=== PATIENT | male | born 1945 | race Caucasian/White ===

== ENCOUNTER 2016-04-01 17:23 | Emergency (ER) | payer MEDICARE, OTHER ==
[~2016-04-01] VITALS: Ht 177.8 cm; Wt 84.1 kg
[~2016-04-01 17:23] MED LIST: ASPI325T6 PO; FLOMAX 0.40.4 MG/CAP PO; NORCO 325 MG-51 TAB; NORCO 325 MG-51 TAB PO; PRESERVISION1 SGL PO; PRILOSEC 20MG20 MG PO; TOPROL XL 50MG50 MG PO
[2016-04-01 18:59] LABS: BASO % 0.4 % (0.0-2.0); EOS % 0.4 % (0-4.0); GRAN # 3.6 (1.4-6.5); GRAN % 68.5 % (42.2-75.2); HEMOGLOBIN 13.3 g/dl (13.5-18.0); LYMPH # 1.2 (1.2-3.4); LYMPH % 23.5 % (20.0-51.0); MEAN CELL VOLUME 106 fl (80.0-100.0); MEAN CORPUSCULAR HEMOGLOBIN 39 pg (27.0-31.0); MEAN CORPUSCULAR HGB CONC 37 g/dl (33.0-37.0); MEAN PLATELET VOLUME 9.7 fl (7.4-10.4); MONO # 0.4 (0.1-0.6); MONO % 6.8 % (1.7-9.3); PLATELET COUNT 108 K/mm3 (130-400); REDCELL DISTRIBUTION WIDTH-CV 14.5 % (11.5-14.5); WHITE BLOOD COUNT 5.3 K/mm3 (4.8-10.8)
[2016-04-01 19:10] LABS: HEMATOCRIT 35.9 % (42.0-52.0)
[2016-04-01 19:18] LABS: ADJUSTED CALCIUM 9.5 mg/dL (8.4-10.2); ALBUMIN 3.4 gm/dL (3.5-5.0); CREATININE, serum 0.61 mg/dL (0.66-1.25); POTASSIUM 3.3 mmol/L (3.4-5.0); TOTAL PROTEIN 6.7 gm/dL (6.4-8.2)
[2016-04-01 19:22] LABS: SYNOVIAL FL. MONONUCLEAR 45.4 % (0-75); SYNOVIAL FL. POLYMORPHONUCLEAR 54.6 % (0-25)
[2016-04-01 19:28] LABS: SYNOVIAL FLUID APPEARANCE BLOODY; SYNOVIAL FLUID COLOR RED
[2016-04-01 19:37] LABS: PH 6 (5-8); SQUAMOUS EPITHELIAL None Seen /hpf; URINE APPEARANCE Clear; URINE BACTERIA None Seen /hpf; URINE BILIRUBIN Negative (NEGATIVE); URINE BLOOD 1+ (NEGATIVE); URINE COLOR Yellow; URINE GLUCOSE Negative (NEGATIVE); URINE KETONE 1+ (NEGATIVE); URINE RBC 0-2 /hpf; URINE UROBILINOGEN >=4.0 mg/dL (NEGATIVE); URINE WBC 0-2 /hpf
[2016-04-01 19:53] LABS: SYNOVIAL FLUID WBC 17400 /mm3 (200-600)
[2016-04-01 20:30] VITALS: BP 147/83; PULSE 97; TEMP 98.8
[2016-04-03 10:43] LABS: CRYSTAL NUMBER SEEN Few (()); CRYSTAL TYPE CA Pyrophosphat (()); SYN APPEARANCE Bloody (()); SYN COLOR Red (())
== END 2016-04-01 20:30 | disposition home or self-care (01) ==
LOC: COL.ER 17:23
PROVIDERS: Family Medicine
DX: M25.462 Effusion, left knee (principal); S80.02XA Contusion of left knee, initial encounter; W01.198A Fall on same level from slipping, tripping and stumbling with subsequent striking against other object, initial encounter; Y92.009 Unspecified place in unspecified non-institutional (private) residence as the place of occurrence of the external cause; M17.12 Unilateral primary osteoarthritis, left knee; I10 Essential (primary) hypertension; E87.1 Hypo-osmolality and hyponatremia

== ENCOUNTER → 2016-04-15 | Outpatient (REF) | LOC: ZLAB.WCH 11:16 | DX: Z01.89 Encounter for other specified special examinations (principal) ==

== ENCOUNTER 2016-12-30 16:05 | Emergency (ER) | payer MEDICARE, OTHER ==
[~2016-12-30] VITALS: Ht 175.3 cm; Wt 81.8 kg
[2016-12-30 16:08] VITALS: TEMP 96.5
[2016-12-30 17:00] LABS: ADJUSTED CALCIUM 7.8 mg/dL (8.4-10.2); ALBUMIN 2.6 gm/dL (3.5-5.0); BILIRUBIN,TOTAL 1.5 mg/dL (0.0-1.0); CALCIUM 6.7 mg/dL (8.4-10.2); CREATININE, serum 0.61 mg/dL (0.66-1.25); POTASSIUM 3.3 mmol/L (3.4-5.0); TOTAL PROTEIN 5.4 gm/dL (6.4-8.2)
[2016-12-30 17:02] LABS: BASO % 0.2 % (0.0-2.0); GRAN # 9.6 (1.4-6.5); HEMOGLOBIN 12.7 g/dl (13.5-18.0); LYMPH # 1.5 (1.2-3.4); LYMPH % 12.4 % (20.0-51.0); MEAN CELL VOLUME 110 fl (80.0-100.0); MEAN CORPUSCULAR HEMOGLOBIN 41 pg (27.0-31.0); MEAN CORPUSCULAR HGB CONC 37 g/dl (33.0-37.0); MEAN PLATELET VOLUME 9.3 fl (7.4-10.4); MONO # 0.7 (0.1-0.6); PLATELET COUNT 244 K/mm3 (130-400); RED BLOOD COUNT 3.11 M/mm3 (4.20-5.60); WHITE BLOOD COUNT 11.8 K/mm3 (4.8-10.8)
[2016-12-30 17:10] LABS: HEMATOCRIT 34.2 % (42.0-52.0); PROTHROMBIN TIME 11.3 SECONDS (9.7-12.8)
[2016-12-30 17:11] LABS: TROPONIN-I 0.013 ng/mL (0.000-0.034)
[2016-12-30 17:13] LABS: PARTIAL THROMBOPLASTIN TIME 28.5 SECONDS (26.0-37.0)
[2016-12-30 20:47] VITALS: BP 103/75; PULSE 90
== END 2016-12-30 20:49 | disposition short-term general hospital (02) ==
LOC: COL.ER 16:05
PROVIDERS: Family Medicine
DX: I49.9 Cardiac arrhythmia, unspecified (principal); R55 Syncope and collapse; J44.9 Chronic obstructive pulmonary disease, unspecified; F17.210 Nicotine dependence, cigarettes, uncomplicated; Z79.82 Long term (current) use of aspirin
CPT/HCPCS: Q9967

== ENCOUNTER → 2017-02-06 | Outpatient (REF) ==
[2017-02-06 06:35] LABS: COLLECTION METHOD CATHETER
[2017-02-06 07:18] LABS: PH 6 (5-8); SQUAMOUS EPITHELIAL None Seen /hpf; URINE APPEARANCE Clear; URINE BACTERIA None Seen /hpf; URINE BILIRUBIN Negative (NEGATIVE); URINE BLOOD Negative (NEGATIVE); URINE COLOR Yellow; URINE GLUCOSE Negative (NEGATIVE); URINE KETONE Negative (NEGATIVE); URINE LEUKOCYTE ESTERASE 1+ (NEGATIVE); URINE PROTEIN(semi-quant) Negative (NEGATIVE); URINE UROBILINOGEN >=4.0 mg/dL (NEGATIVE)
== END ==
LOC: ZCOL.LAB 06:32
PROVIDERS: Internal Medicine
DX: Z01.89 Encounter for other specified special examinations (principal)

== ENCOUNTER → 2017-03-11 | Outpatient (REF) ==
[2017-03-11 16:12] LABS: INFLUENZA A NEGATIVE; INFLUENZA B NEGATIVE
== END ==
LOC: ZCOL.LAB 15:49
PROVIDERS: Internal Medicine
DX: Z01.89 Encounter for other specified special examinations (principal)

== ENCOUNTER → 2017-03-12 | Outpatient (REF) | LOC: ZCOL.LAB 12:16 | DX: Z01.89 Encounter for other specified special examinations (principal) ==

== ENCOUNTER 2017-04-16 10:44 | Day surgery (SDC) | payer MEDICARE, OTHER ==
[~2017-04-16] VITALS: Ht 177.8 cm; Wt 78.2 kg
[~2017-04-16 10:44] MED LIST changes: +ALBUTEROL0.83 MG/ML IH; +ATROVENT I0.2 MG/1 M IH; +COLACE 100100 MG/CAP PO; +LASIX 40MG TABL40 MG PEG; +NATURE'S BLEND100 M2 PEG; +PEPCID 40INJ PEG; +TWOCAL HN 237237 ML PO; +TYLEINFANT PO; +ZYPREXA 5MG5 MG PO
[2017-04-16] MEDS ORDERED: IMODIUM A-D2 MG PO (11:14)
[2017-04-16] MEDS ORDERED: FLOMAX 0.40.4 MG/CAP PO (11:16)
[2017-04-16 11:19] VITALS: BP 136/72; PULSE 90; TEMP 98
== END 2017-04-16 13:00 | disposition home or self-care (01) ==
LOC: SDCO 10:44
DX: K94.23 Gastrostomy malfunction (principal)
CPT/HCPCS: OP

== ENCOUNTER → 2017-04-30 | Outpatient (REF) ==
[~2017-04-30] MED LIST changes: +IMODIUM A-D2 MG PO
== END ==
LOC: ZLAB.WCH 17:42
DX: Z01.89 Encounter for other specified special examinations (principal)

== ENCOUNTER → 2017-12-16 | Outpatient (REF) ==
[2017-12-16 18:49] LABS: PSA-TOTAL 2.03 ng/mL (0-4)
[2017-12-16 19:20] LABS: THYROID STIMULATING HORMONE 1.71 uIU/mL (0.465-4.680)
== END ==
LOC: ZLAB.WCH 18:03
PROVIDERS: Internal Medicine
DX: Z01.89 Encounter for other specified special examinations (principal)
CPT/HCPCS: G0103

== ENCOUNTER → 2022-12-23 | Outpatient (CLI) | payer MEDICARE, OTHER | LOC: COL.RAD 12-09 13:30 | DX: Z12.2 Encounter for screening for malignant neoplasm of respiratory organs (principal); Z87.891 Personal history of nicotine dependence ==